=== PATIENT | male | born 1975 | race African-American/Black ===

== ENCOUNTER 2016-07-14 18:54 | Inpatient (IN) | payer MEDICAID ==
[~2016-07-14] VITALS: Ht 185.4 cm; Wt 82.1 kg
[~2016-07-14 18:54] MED LIST: ACET325T14 PO; AMOX1TAB64 PO; ASPI325T4 PO; ATOR80TA75 PO; CEPH750C7 PO; HYDR-3138 PO; HYDR-3240 PO; LISI-167 PO; METO25TA91 PO
[2016-07-14] MEDS ORDERED: MORPHINE SULFATE 4 MG/ML, 1ML ONE ×2 (19:59→21:10)
[2016-07-14] MEDS ORDERED: ONDANSETRON 2MG/ML, 2ML ONE (19:59)
[2016-07-14] MEDS ORDERED: AMPICILLIN/SULBACTAM 3 GM in SODIUM CHLORIDE 0.9% 100 ML IVPB ONE (20:00)
[2016-07-14] MEDS ORDERED: ONDANSETRON 2MG/ML, 2ML IVPush ONE (20:00)
[2016-07-14] MEDS ORDERED: VANCOMYCIN PER PHARMACY IV ONE (20:00)
[2016-07-14] MEDS ORDERED: VANCOMYCIN 1,800 MG in SODIUM CHLORIDE 0.9% 250 ML IV ONE (20:00)
[2016-07-14] MEDS ORDERED: SODIUM CHLORIDE 0.9% 1,000ML IVBOLUS ONE (20:00)
[2016-07-14] MEDS ORDERED: PHARMACOKINETIC CONSULTATION MC ONE (20:00)
[2016-07-14] MEDS ORDERED: OMNIPAQUE 350 MG/ML, 100ML BOTTLE ONE (20:00)
[2016-07-14] MEDS ORDERED: SODIUM CHLORIDE FLUSH 10ML SYR IVF ONE (20:00)
[2016-07-14] MEDS: MORPHINE SULFATE 4 MG/ML, 1ML IV PRN ×2 (20:06→21:15)
[2016-07-14 20:28] LABS: BLOOD UREA NITROGEN 8 mg/dL (7-18)
[2016-07-14] MEDS ORDERED: HYDR2TAB13 PO (20:57)
[2016-07-14] MEDS ORDERED: CLON0.1T PO (20:57)
[2016-07-14] MEDS ORDERED: LIDOCAINE 1%, 20ML ONE (21:13)
[2016-07-14] MEDS ORDERED: LIDOCAINE 1%, 20ML SQ ONE (21:30)
[2016-07-14] MEDS ORDERED: ACETAMINOPHEN 325 MG TABLET PO PRN (22:00)
[2016-07-14] MEDS ORDERED: VANCOMYCIN 0 MG in SODIUM CHLORIDE 0.9% 250 ML IV SCH (22:30)
[2016-07-14] MEDS: NICOTINE 7 MG/24 HR PATCH.TD24 TD SCH (22:30)
[2016-07-14] MEDS: ENOXAPARIN 40 MG/0.4 ML SQ SCH (22:30)
[2016-07-14] MEDS ORDERED: LABETALOL 5MG/ML, 20ML IV PRN (22:30)
[2016-07-14] MEDS ORDERED: VANCOMYCIN PER PHARMACY MC PRN (22:30)
[2016-07-14] MEDS ORDERED: ONDANSETRON ODT 4 MG PO PRN (22:30)
[2016-07-14] MEDS ORDERED: PHARMACOKINETIC MONITORING MC PRN (23:00)
[2016-07-14] MEDS: ATORVASTATIN 80 MG TABLET PO SCH (23:32)
[2016-07-14 23:40] VITALS: BP 173/103
[2016-07-15] MEDS ORDERED: MAGNESIUM SULFATE PMX 4GM/100M 100 ML IV ONE (01:00)
[2016-07-15] MEDS ORDERED: POTASSIUM CHLORIDE 20 MEQ TAB.ER.PRT PO ONE (01:00)
[2016-07-15] MEDS: AMPICILLIN/SULBACTAM 3 GM in SODIUM CHLORIDE 0.9% 100 ML IV SCH ×4 (01:52→20:21)
[2016-07-15] MEDS: MORPHINE SULFATE 4 MG/ML, 1ML IVPush PRN ×5 (01:52→20:21)
[2016-07-15 03:31] VITALS: BP 161/91
[2016-07-15 06:25] LABS: BLOOD UREA NITROGEN 6 mg/dL (7-18)
[2016-07-15 07:49] VITALS: BP 144/88
[2016-07-15] MEDS: METOPROLOL SUCCINATE 25 MG TAB.ER.24H PO SCH (08:13)
[2016-07-15] MEDS: ASPIRIN 325 MG TABLET PO SCH (08:14)
[2016-07-15] MEDS: LISINOPRIL 10 MG TABLET PO SCH ×2 (08:14→21:25)
[2016-07-15] MEDS: VANCOMYCIN 1,800 MG in SODIUM CHLORIDE 0.9% 250 ML IV SCH ×2 (09:54→21:25)
[2016-07-15 12:32] VITALS: BP 150/91
[2016-07-15 20:43] VITALS: BP 164/95
[2016-07-15] MEDS: ATORVASTATIN 80 MG TABLET PO SCH (21:25)
[2016-07-15] MEDS: ENOXAPARIN 40 MG/0.4 ML SQ SCH (22:30)
[2016-07-15] MEDS: NICOTINE 7 MG/24 HR PATCH.TD24 TD SCH (22:30)
[2016-07-16] MEDS: MORPHINE SULFATE 4 MG/ML, 1ML IVPush PRN ×6 (00:27→21:49)
[2016-07-16 01:01] VITALS: BP 162/92
[2016-07-16] MEDS: AMPICILLIN/SULBACTAM 3 GM in SODIUM CHLORIDE 0.9% 100 ML IV SCH ×4 (01:58→21:11)
[2016-07-16 07:49] VITALS: BP 171/94
[2016-07-16] MEDS: LISINOPRIL 10 MG TABLET PO SCH ×2 (08:08→21:11)
[2016-07-16] MEDS: ASPIRIN 325 MG TABLET PO SCH (08:08)
[2016-07-16] MEDS: METOPROLOL SUCCINATE 25 MG TAB.ER.24H PO SCH (08:09)
[2016-07-16 09:02] LABS: BLOOD UREA NITROGEN 5 mg/dL (7-18)
[2016-07-16] MEDS: VANCOMYCIN 1,800 MG in SODIUM CHLORIDE 0.9% 250 ML IV SCH (10:03)
[2016-07-16] MEDS: AMLODIPINE 5 MG TABLET PO SCH (12:36)
[2016-07-16 14:26] VITALS: BP 157/102
[2016-07-16 20:26] VITALS: BP 161/61
[2016-07-16] MEDS: ATORVASTATIN 80 MG TABLET PO SCH (21:11)
[2016-07-16] MEDS: VANCOMYCIN 1,600 MG in SODIUM CHLORIDE 0.9% 250 ML IV SCH (21:49)
[2016-07-16] MEDS: NICOTINE 7 MG/24 HR PATCH.TD24 TD SCH (22:30)
[2016-07-16] MEDS: ENOXAPARIN 40 MG/0.4 ML SQ SCH (22:30)
[2016-07-17 01:50] VITALS: BP 179/88
[2016-07-17] MEDS: TEMAZEPAM 15 MG CAPSULE PO PRN (02:02)
[2016-07-17] MEDS: AMPICILLIN/SULBACTAM 3 GM in SODIUM CHLORIDE 0.9% 100 ML IV SCH ×4 (02:02→20:11)
[2016-07-17] MEDS: MORPHINE SULFATE 4 MG/ML, 1ML IVPush PRN ×4 (04:40→20:10)
[2016-07-17 07:41] VITALS: BP 166/91
[2016-07-17] MEDS: ASPIRIN 325 MG TABLET PO SCH (07:45)
[2016-07-17] MEDS: AMLODIPINE 5 MG TABLET PO SCH (07:46)
[2016-07-17] MEDS: LISINOPRIL 10 MG TABLET PO SCH (07:46)
[2016-07-17] MEDS: LISINOPRIL 20 MG TABLET PO SCH (08:58)
[2016-07-17] MEDS: VANCOMYCIN 1,600 MG in SODIUM CHLORIDE 0.9% 250 ML IV SCH ×2 (09:41→21:04)
[2016-07-17 13:50] VITALS: BP 124/82
[2016-07-17] MEDS ORDERED: POLYETHYLENE GLYCOL 17 GM PACKET PO PRN (16:00)
[2016-07-17] MEDS: SENNOSIDES 8.6 MG TABLET PO SCH (17:02)
[2016-07-17 19:33] VITALS: BP 156/92
[2016-07-17] MEDS: ATORVASTATIN 80 MG TABLET PO SCH (20:11)
[2016-07-17] MEDS ORDERED: OMNIPAQUE 350 MG/ML, 100ML BOTTLE ONE (22:27)
[2016-07-17] MEDS: NICOTINE 7 MG/24 HR PATCH.TD24 TD SCH (22:30)
[2016-07-17] MEDS: ENOXAPARIN 40 MG/0.4 ML SQ SCH (22:30)
[2016-07-18] MEDS: MORPHINE SULFATE 4 MG/ML, 1ML IVPush PRN ×6 (00:09→23:03)
[2016-07-18] MEDS: TEMAZEPAM 15 MG CAPSULE PO PRN (00:09)
[2016-07-18 01:54] VITALS: BP 150/87
[2016-07-18] MEDS: AMPICILLIN/SULBACTAM 3 GM in SODIUM CHLORIDE 0.9% 100 ML IV SCH ×4 (02:23→20:28)
[2016-07-18 06:46] VITALS: BP 158/100
[2016-07-18] MEDS: AMLODIPINE 5 MG TABLET PO SCH (08:11)
[2016-07-18] MEDS: ASPIRIN 325 MG TABLET PO SCH (08:11)
[2016-07-18] MEDS: SENNOSIDES 8.6 MG TABLET PO SCH (08:11)
[2016-07-18] MEDS: LISINOPRIL 20 MG TABLET PO SCH (08:11)
[2016-07-18] MEDS: OXYcodone/APAP 5/325MG TABLET PO PRN ×3 (09:35→22:24)
[2016-07-18] MEDS: VANCOMYCIN 1,600 MG in SODIUM CHLORIDE 0.9% 250 ML IV SCH ×2 (10:44→22:24)
[2016-07-18 13:26] VITALS: BP 143/95
[2016-07-18 20:14] VITALS: BP 178/102
[2016-07-18] MEDS: ATORVASTATIN 80 MG TABLET PO SCH (20:28)
[2016-07-18] MEDS: ENOXAPARIN 40 MG/0.4 ML SQ SCH (22:30)
[2016-07-18] MEDS: NICOTINE 7 MG/24 HR PATCH.TD24 TD SCH (22:30)
[2016-07-19 01:36] VITALS: BP 159/95
[2016-07-19] MEDS: AMPICILLIN/SULBACTAM 3 GM in SODIUM CHLORIDE 0.9% 100 ML IV SCH ×2 (03:08→08:37)
[2016-07-19] MEDS: MORPHINE SULFATE 4 MG/ML, 1ML IVPush PRN ×2 (03:08→08:13)
[2016-07-19] MEDS: OXYcodone/APAP 5/325MG TABLET PO PRN (04:23)
[2016-07-19 08:03] VITALS: BP 156/99
[2016-07-19] MEDS: AMLODIPINE 5 MG TABLET PO SCH (08:38)
[2016-07-19] MEDS: ASPIRIN 325 MG TABLET PO SCH (08:38)
[2016-07-19] MEDS: LISINOPRIL 20 MG TABLET PO SCH (08:39)
[2016-07-19] MEDS: SENNOSIDES 8.6 MG TABLET PO SCH (08:39)
[2016-07-19] MEDS ORDERED: SULF1TAB24 PO (09:46)
[2016-07-19] MEDS ORDERED: HYDR-3341 PO (09:46)
[2016-07-19] MEDS ORDERED: AMLO10TA2 PO (09:46)
[2016-07-19] MEDS ORDERED: ASPI325T4 PO (09:46)
[2016-07-19] MEDS ORDERED: LISI40TA PO (09:49)
== END 2016-07-19 11:45 | disposition home or self-care (01) | DRG 603 ==
LOC: ED 19:55 → 3NE 21:11
PROVIDERS: ADMIT Internal Medicine; ATTEND Internal Medicine
PROC: 0W923ZZ Drainage of Face, Percutaneous Approach (ICD-10-PCS; principal; 2016-07-14)
DX: L03.213 Periorbital cellulitis (principal); L02.01 Cutaneous abscess of face; L03.211 Cellulitis of face; I16.0 Hypertensive urgency; E87.6 Hypokalemia; F10.20 Alcohol dependence, uncomplicated; F17.210 Nicotine dependence, cigarettes, uncomplicated; G89.11 Acute pain due to trauma; Z71.6 Tobacco abuse counseling; Z86.14 Personal history of Methicillin resistant Staphylococcus aureus infection; Z86.74 Personal history of sudden cardiac arrest; Z87.01 Personal history of pneumonia (recurrent); Y93.67 Activity, basketball; Y92.89 Other specified places as the place of occurrence of the external cause; Y99.8 Other external cause status; Z22.322 Carrier or suspected carrier of Methicillin resistant Staphylococcus aureus; Z79.82 Long term (current) use of aspirin; Z79.899 Other long term (current) drug therapy; Z83.3 Family history of diabetes mellitus; Z82.3 Family history of stroke; Z82.49 Family history of ischemic heart disease and other diseases of the circulatory system
CPT/HCPCS: 36415; 70487; 74160; 80048; 80202; 82040; 83605; 83735; 84145; 85025; 87040; 87081; 96365; 96367; 96375; J0295; J2405; J3370; Q9967; J3475; J7030; J7050

== ENCOUNTER 2016-08-01 23:38 | Emergency (ER) | payer MEDICAID ==
[~2016-08-01] VITALS: Ht 188 cm; Wt 78.8 kg
[~2016-08-01 23:38] MED LIST changes: +AMLO10TA2 PO; +CLON0.1T PO; +HYDR-3341 PO; +HYDR2TAB13 PO; +LISI40TA PO; +SULF1TAB24 PO
[2016-08-01 23:44] VITALS: BP 133/81
[2016-08-02] MEDS ORDERED: LIDOCAINE 1%, 20ML INFIL ONE (00:30)
[2016-08-02 00:47] LABS: ASPARTATE AMINO TRANSFERASE 15 U/L (15-37); BLOOD UREA NITROGEN 25 mg/dL (7-18)
[2016-08-02] MEDS ORDERED: LIDOCAINE 1%, 20ML ONE (01:14)
[2016-08-02] MEDS ORDERED: L.E.T SOLUTION TP ONE ×2 (01:30→01:33)
[2016-08-02] MEDS ORDERED: DIPH,PERTUSS(ACELL),TET VAC/PF 0.5 ML IM-VACC ONE ×2 (02:23→02:30)
== END 2016-08-02 02:34 | disposition home or self-care (01) ==
LOC: ED 08-02 02:28
DX: I10 Essential (primary) hypertension (principal); F17.200 Nicotine dependence, unspecified, uncomplicated; S91.111A Laceration without foreign body of right great toe without damage to nail, initial encounter; W26.0XXA Contact with knife, initial encounter; Y93.89 Activity, other specified; Y92.89 Other specified places as the place of occurrence of the external cause; Y99.8 Other external cause status
CPT/HCPCS: 12002; 36415; 80053; 85025

== ENCOUNTER 2016-10-19 08:24 | Emergency (ER) | payer MEDICAID ==
[~2016-10-19] VITALS: Ht 182.9 cm; Wt 86.5 kg
[~2016-10-19 08:24] MED LIST changes: -HYDR2TAB13 PO; +HYDR2TAB29 PO
[2016-10-19] MEDS ORDERED: SODIUM CHLORIDE 0.9% 1,000 ML IV ONE (08:50)
[2016-10-19] MEDS ORDERED: PLEASE ENTER ALLERGIES MC SCH ×2 (09:00)
[2016-10-19] MEDS ORDERED: SODIUM CHLORIDE 0.9% 1,000ML IVBOLUS ONE (09:00)
[2016-10-19] MEDS ORDERED: PLEASE ENTER HEIGHT AND WEIGHT MC SCH (09:00)
[2016-10-19 09:18] LABS: HEMATOCRIT 33.9 % (39.2-51.8); HEMOGLOBIN 11.3 g/dL (13.7-18.0); WHITE BLOOD COUNT 6.4 x10^3/uL (3.4-10)
[2016-10-19 09:30] LABS: BLOOD UREA NITROGEN 10 mg/dL (7-18)
[2016-10-19 09:32] LABS: ACETAMINOPHEN < 2 mcg/mL (10-30)
[2016-10-19 15:49] LABS: DAU SCREEN DISCLAIMER
[2016-10-19 20:13] VITALS: BP 108/73
== END 2016-10-19 20:14 | disposition home or self-care (01) ==
LOC: MERGE 08:24 → EDBD 08:24 → ED 17:17
DX: G31.2 Degeneration of nervous system due to alcohol (principal); E87.0 Hyperosmolality and hypernatremia; F10.120 Alcohol abuse with intoxication, uncomplicated
CPT/HCPCS: 36415; 80048; 80307; 80329; 82040; 85025; 93005; 99285; G0480

== ENCOUNTER 2017-02-24 08:33 | Emergency (ER) | payer MEDICAID ==
[~2017-02-24] VITALS: Ht 188 cm; Wt 100.0 kg
[~2017-02-24 08:33] MED LIST changes: +ASPI325T17 PO; -ASPI325T4 PO; +ATOR-2 PO; -ATOR80TA75 PO; -HYDR-3138 PO; +HYDR-3237 PO
[2017-02-24 08:41] VITALS: BP 142/105
[2017-02-24 09:46] LABS: HEMATOCRIT 45.6 % (39.2-51.8); HEMOGLOBIN 15.5 g/dL (13.7-18.0); WHITE BLOOD COUNT 7.4 x10^3/uL (3.4-10)
[2017-02-24 09:54] LABS: BLOOD UREA NITROGEN 12 mg/dL (7-18)
[2017-02-24] MEDS ORDERED: CEFTRIAXONE 1,000 MG IM ONE (11:30)
[2017-02-24] MEDS ORDERED: CEFTRIAXONE 1,000 MG ONE (11:57)
== END 2017-02-24 12:08 | disposition home or self-care (01) ==
LOC: ED 10:22
DX: F10.129 Alcohol abuse with intoxication, unspecified (principal); F12.10 Cannabis abuse, uncomplicated; I10 Essential (primary) hypertension; J15.9 Unspecified bacterial pneumonia; Y92.481 Parking lot as the place of occurrence of the external cause
CPT/HCPCS: 36415; 71010; 80048; 82040; 83605; 85025; 93005; 96372; 99285; J0696

== ENCOUNTER 2017-03-08 08:53 | Emergency (ER) | payer MEDICAID ==
[~2017-03-08] VITALS: Ht 185.4 cm; Wt 90.9 kg
[2017-03-08] MEDS ORDERED: KETOROLAC 30 MG/1 ML IVPush ONE (09:30)
[2017-03-08] MEDS ORDERED: DEXAMETHASONE 4 MG/ML, 1ML IVPush ONE (09:30)
[2017-03-08] MEDS ORDERED: DEXAMETHASONE 4 MG/ML, 1ML ONE ×2 (09:40→09:53)
[2017-03-08] MEDS ORDERED: KETOROLAC 30 MG/1 ML ONE (09:40)
[2017-03-08] MEDS ORDERED: ALBUTEROL SULFATE 2.5 MG/3 ML ONE (10:11)
[2017-03-08 10:45] LABS: MICROSCOPIC INDICATED
[2017-03-08 10:56] LABS: CULTURE INDICATED? NO
[2017-03-08 11:23] VITALS: BP 134/74
== END 2017-03-08 11:41 | disposition home or self-care (01) ==
LOC: ED 10:11
DX: J11.1 Influenza due to unidentified influenza virus with other respiratory manifestations (principal); J20.8 Acute bronchitis due to other specified organisms; I10 Essential (primary) hypertension; F17.210 Nicotine dependence, cigarettes, uncomplicated; E78.5 Hyperlipidemia, unspecified; J44.0 Chronic obstructive pulmonary disease with (acute) lower respiratory infection; Z79.82 Long term (current) use of aspirin
CPT/HCPCS: 71010; 81001; 93005; 94640; 96374; 96375; 99285; J1100; J1885

== ENCOUNTER 2017-03-21 01:14 | Emergency (ER) | payer MEDICAID ==
[~2017-03-21] VITALS: Ht 188 cm; Wt 89.9 kg
[2017-03-21 01:16] VITALS: BP 140/100
[2017-03-21 03:04] LABS: BASOPHILS # (AUTO) 0.04 x10^3/uL (0-0.1); BASOPHILS % (AUTO) 1 % (0-1); EOSINOPHILS # (AUTO) 0.08 x10^3/uL (0-0.4); EOSINOPHILS % (AUTO) 2 % (1-7); LYMPHOCYTES % (AUTO) 53 % (22-44); MD NO; MEAN CORPUSCULAR HEMOGLOBIN 31.3 pg (27.5-34.5); MEAN CORPUSCULAR HGB CONC 33.8 g/dL (33.2-36.2); MEAN CORPUSCULAR VOLUME 92.7 fL (81-97); MEAN PLATELET VOLUME 6.3 fL (7.4-10.4); MONOCYTES # (AUTO) 0.27 x10^3/uL (0.2-0.8); MONOCYTES % (AUTO) 6 % (2-9); NEUTROPHILS # (AUTO) 1.95 x10^3/uL (1.8-6.8); NEUTROPHILS % (AUTO) 40 % (42-75); PLATELET COUNT 312 x10^3/uL (130-400)
[2017-03-21 03:14] LABS: ALANINE AMINOTRANSFERASE 62 U/L (12-78); ANION GAP 11 mmol/L (5-15); CALCIUM 8.4 mg/dL (8.5-10.1); CHLORIDE 106 mmol/L (98-107)
[2017-03-21 03:17] LABS: ALKALINE PHOSPHATASE 91 U/L (45-117); BILIRUBIN,TOTAL 0.3 mg/dL (0.2-1.0); TROPONIN I < 0.015 ng/mL (0.000-0.045)
== END 2017-03-21 04:05 | disposition home or self-care (01) ==
LOC: ED 03:59
DX: R07.2 Precordial pain (principal); K21.0 Gastro-esophageal reflux disease with esophagitis; J44.9 Chronic obstructive pulmonary disease, unspecified; F10.220 Alcohol dependence with intoxication, uncomplicated; I10 Essential (primary) hypertension; Z79.899 Other long term (current) drug therapy
CPT/HCPCS: 36415; 71045; 80053; 80307; 84484; 85025; 93005; 99285

== ENCOUNTER 2017-05-08 11:09 | Inpatient (IN) | payer MEDICAID ==
[~2017-05-08] VITALS: Ht 185.4 cm; Wt 81.6 kg
[2017-05-08] MEDS ORDERED: SODIUM CHLORIDE 0.9% 1,000 ML IV ONE ×2 (12:08→14:04)
[2017-05-08] MEDS ORDERED: MORPHINE SULFATE 4 MG/ML, 1ML ONE ×2 (12:22→14:33)
[2017-05-08] MEDS ORDERED: SODIUM CHLORIDE FLUSH 10ML SYR IVF ONE (12:30)
[2017-05-08] MEDS ORDERED: SODIUM CHLORIDE 0.9% 1,000ML IVBOLUS ONE ×2 (12:30→14:00)
[2017-05-08] MEDS: MORPHINE SULFATE 4 MG/ML, 1ML IVPush PRN ×2 (12:36→14:47)
[2017-05-08] MEDS ORDERED: ONDANSETRON 2MG/ML, 2ML ONE (12:47)
[2017-05-08 12:54] LABS: BASOPHILS # (AUTO) 0.02 x10^3/uL (0-0.1); BASOPHILS % (AUTO) 0 % (0-1); EOSINOPHILS # (AUTO) 0.03 x10^3/uL (0-0.4); EOSINOPHILS % (AUTO) 1 % (1-7); LYMPHOCYTES # (AUTO) 0.86 x10^3/uL (1-3.4); LYMPHOCYTES % (AUTO) 18 % (22-44); MD NO; MEAN CORPUSCULAR HEMOGLOBIN 32.5 pg (27.5-34.5); MEAN CORPUSCULAR HGB CONC 34.1 g/dL (33.2-36.2); MEAN CORPUSCULAR VOLUME 95.2 fL (81-97); MEAN PLATELET VOLUME 7.1 fL (7.4-10.4); MONOCYTES # (AUTO) 0.27 x10^3/uL (0.2-0.8); MONOCYTES % (AUTO) 6 % (2-9); NEUTROPHILS % (AUTO) 75 % (42-75); PLATELET COUNT 265 x10^3/uL (130-400); RED BLOOD COUNT 4.42 x10^6/uL (4.38-5.82); RED CELL DISTRIBUTION WIDTH 18.2 % (9.4-14.8)
[2017-05-08 13:05] LABS: ALBUMIN 4.2 g/dL (3.4-5.0); ANION GAP 17 mmol/L (5-15); CALCIUM 8.7 mg/dL (8.5-10.1); CHLORIDE 99 mmol/L (98-107)
[2017-05-08 13:08] LABS: INTERNATIONAL NORMALIZED RATIO 1.01 (0.93-1.1); PROTHROMBIN TIME 10.4 Seconds (9.6-11.5)
[2017-05-08 13:12] LABS: ALANINE AMINOTRANSFERASE 108 U/L (12-78); ALKALINE PHOSPHATASE 106 U/L (45-117); BILIRUBIN,TOTAL 0.8 mg/dL (0.2-1.0); CREATININE 0.88 mg/dL (0.7-1.3); TOTAL PROTEIN 8.6 g/dL (6.4-8.2); TROPONIN I < 0.015 ng/mL (0.000-0.045)
[2017-05-08] MEDS ORDERED: SODIUM CHLORIDE FLUSH 10ML SYR IVF PRN (14:30)
[2017-05-08] MEDS ORDERED: MORP-52 PO (14:46)
[2017-05-08] MEDS ORDERED: [UNRECOGNIZED DRUG - CODE] PO (14:46)
[2017-05-08] MEDS ORDERED: ALBU0.63 NEB (14:47)
[2017-05-08] MEDS ORDERED: LORazepam 2 MG/ML, 1ML IVPush ONE (15:30)
[2017-05-08] MEDS ORDERED: hydrALAzine 20 MG/ML, 1ML IV ONE (15:30)
[2017-05-08] MEDS ORDERED: hydrALAzine 20 MG/ML, 1ML ONE ×2 (15:31→15:36)
[2017-05-08] MEDS ORDERED: LORazepam 2 MG/ML, 1ML ONE (15:32)
[2017-05-08] MEDS ORDERED: LISINOPRIL 20 MG TABLET PO ONE (16:00)
[2017-05-08] MEDS ORDERED: AMLODIPINE 5 MG TABLET PO ONE (16:00)
[2017-05-08 16:12] LABS: CULTURE INDICATED? YES; MICROSCOPIC INDICATED
[2017-05-08 16:24] LABS: AMPHETAMINE SCREEN, URINE Negative (Negative); BARBITURATE SCREEN, URINE Negative (Negative); BENZODIAZEPINE SCREEN, URINE Positive (Negative); CANNABINOID SCREEN, URINE Positive (Negative); COCAINE SCREEN, URINE Negative (Negative); METHADONE SCREEN, URINE Negative (Negative); OPIATE SCREEN, URINE Positive (Negative)
[2017-05-08 16:40] VITALS: BP 182/106
[2017-05-08] MEDS ORDERED: hydrALAzine 20 MG/ML, 1ML IV PRN (17:30)
[2017-05-08] MEDS ORDERED: LORazepam 2 MG/ML, 1ML IV PRN ×4 (18:00)
[2017-05-08] MEDS ORDERED: POTASSIUM CHLORIDE 20 MEQ TAB.ER.PRT PO ONE (18:00)
[2017-05-08] MEDS ORDERED: LORazepam 1MG TABLET PO PRN (18:00)
[2017-05-08 18:58] VITALS: BP 103/57
[2017-05-08 19:05] VITALS: BP 158/94
[2017-05-08] MEDS ORDERED: ATORVASTATIN 80 MG TABLET PO SCH (21:00)
[2017-05-08 22:45] VITALS: BP 153/105
[2017-05-08] MEDS: PANTOPRAZOLE 40 MG IV IVPush SCH (22:52)
[2017-05-08] MEDS: ENOXAPARIN 40 MG/0.4 ML SQ SCH (22:57)
[2017-05-08] MEDS ORDERED: OMNIPAQUE 350 MG/ML, 100ML BOTTLE ONE (23:15)
[2017-05-08] MEDS: morphine SULFATE 10 MG/ML, 1ML IVPush PRN (23:22)
[2017-05-08] MEDS: ONDANSETRON 2MG/ML, 2ML IVPush PRN (23:22)
[2017-05-09 01:46] VITALS: BP 165/102
[2017-05-09] MEDS ORDERED: ASPIRIN 81 MG TABLET EC PO SCH (06:00)
[2017-05-09 06:23] LABS: BASOPHILS # (AUTO) 0.01 x10^3/uL (0-0.1); BASOPHILS % (AUTO) 0 % (0-1); EOSINOPHILS # (AUTO) 0.06 x10^3/uL (0-0.4); EOSINOPHILS % (AUTO) 1 % (1-7); LYMPHOCYTES # (AUTO) 1.09 x10^3/uL (1-3.4); LYMPHOCYTES % (AUTO) 21 % (22-44); MD NO; MEAN CORPUSCULAR HEMOGLOBIN 32.4 pg (27.5-34.5); MEAN CORPUSCULAR HGB CONC 33.8 g/dL (33.2-36.2); MEAN CORPUSCULAR VOLUME 95.6 fL (81-97); MEAN PLATELET VOLUME 7.2 fL (7.4-10.4); MONOCYTES % (AUTO) 6 % (2-9); NEUTROPHILS # (AUTO) 3.66 x10^3/uL (1.8-6.8); NEUTROPHILS % (AUTO) 72 % (42-75); PLATELET COUNT 237 x10^3/uL (130-400); RED BLOOD COUNT 4.65 x10^6/uL (4.38-5.82); RED CELL DISTRIBUTION WIDTH 18.3 % (9.4-14.8)
[2017-05-09 06:34] LABS: ALANINE AMINOTRANSFERASE 91 U/L (12-78); ALBUMIN 3.7 g/dL (3.4-5.0); ANION GAP 14 mmol/L (5-15); CALCIUM 8.6 mg/dL (8.5-10.1); CHLORIDE 97 mmol/L (98-107); CHOLESTEROL, TOTAL 258 mg/dL (140-239); CREATININE 0.86 mg/dL (0.7-1.3)
[2017-05-09 06:43] LABS: ALKALINE PHOSPHATASE 105 U/L (45-117); BILIRUBIN,TOTAL 0.9 mg/dL (0.2-1.0); CHOL/HDL RATIO 2.1; HDL CHOL % 47 % (26-37); HDL CHOLESTEROL (DIRECT) 122 mg/dL (40-60); LDL CHOLESTEROL,CALCULATED 114 mg/dL (54-169); LDL/HDL RATIO 0.9 (0.5-3.0); TOTAL PROTEIN 8.1 g/dL (6.4-8.2); TRIGLYCERIDES 108 mg/dL (50-200); VLDL CHOLESTEROL 22 mg/dL (0-25)
[2017-05-09] MEDS: ONDANSETRON 2MG/ML, 2ML IVPush PRN ×2 (06:46→17:28)
[2017-05-09] MEDS: morphine SULFATE 10 MG/ML, 1ML IVPush PRN ×4 (06:46→17:27)
[2017-05-09 08:10] VITALS: BP 142/96
[2017-05-09] MEDS: SODIUM CHLORIDE 0.9% 1,000 ML IV SCH ×3 (09:00→22:20)
[2017-05-09] MEDS ORDERED: AMLODIPINE 5 MG TABLET PO SCH (09:00)
[2017-05-09] MEDS: THIAMINE 100MG TABLET PO SCH (09:21)
[2017-05-09] MEDS: PANTOPRAZOLE 40 MG IV IVPush SCH ×2 (09:21→21:04)
[2017-05-09] MEDS: LISINOPRIL 20 MG TABLET PO SCH (09:22)
[2017-05-09] MEDS: MULTIVITAMIN 1 TABLET PO SCH (09:22)
[2017-05-09] MEDS: FOLIC ACID 1 MG TABLET PO SCH (09:23)
[2017-05-09] MEDS: LORazepam 1MG TABLET PO PRN ×4 (11:38→21:11)
[2017-05-09] MEDS: ONDANSETRON ODT 4 MG PO PRN (11:38)
[2017-05-09 14:40] VITALS: BP 152/103
[2017-05-09] MEDS ORDERED: POTASSIUM PHOSPHATE 44 MEQ in SODIUM CHLORIDE 0.9% 500 ML IV ONE (17:00)
[2017-05-09] MEDS ORDERED: POTASSIUM CHLORIDE 20 MEQ TAB.ER.PRT PO ONE (17:00)
[2017-05-09] MEDS: METOPROLOL TARTRATE 50 MG TABLET PO SCH (18:05)
[2017-05-09] MEDS: POTASSIUM PHOSPHATE 44 MEQ in SODIUM CHLORIDE 0.9% 500 ML IV SCH (18:26)
[2017-05-09] MEDS ORDERED: MAGNESIUM SULFATE PMX 2GM/50ML 50 ML IV ONE (19:00)
[2017-05-09 19:21] VITALS: BP 152/105
[2017-05-09] MEDS: ENOXAPARIN 40 MG/0.4 ML SQ SCH (21:05)
[2017-05-10] MEDS: LORazepam 1MG TABLET PO PRN ×3 (00:21→10:14)
[2017-05-10 01:04] VITALS: BP 142/104
[2017-05-10] MEDS: POTASSIUM PHOSPHATE 44 MEQ in SODIUM CHLORIDE 0.9% 500 ML IV SCH (01:34)
[2017-05-10] MEDS: morphine SULFATE 10 MG/ML, 1ML IVPush PRN ×5 (01:34→22:43)
[2017-05-10 05:35] LABS: CHLORIDE 96 mmol/L (98-107)
[2017-05-10 05:49] LABS: ALANINE AMINOTRANSFERASE 82 U/L (12-78); ALBUMIN 3.2 g/dL (3.4-5.0); ALKALINE PHOSPHATASE 102 U/L (45-117); ANION GAP 13 mmol/L (5-15); BILIRUBIN,TOTAL 0.9 mg/dL (0.2-1.0); CALCIUM 8.2 mg/dL (8.5-10.1); CREATININE 0.88 mg/dL (0.7-1.3); TOTAL PROTEIN 7.6 g/dL (6.4-8.2)
[2017-05-10] MEDS: METOPROLOL TARTRATE 50 MG TABLET PO SCH ×2 (05:59→17:36)
[2017-05-10] MEDS: ONDANSETRON ODT 4 MG PO PRN (06:24)
[2017-05-10 07:07] VITALS: BP 153/103
[2017-05-10] MEDS: PANTOPRAZOLE 40 MG IV IVPush SCH ×2 (08:21→21:07)
[2017-05-10] MEDS: FOLIC ACID 1 MG TABLET PO SCH (08:21)
[2017-05-10] MEDS: MULTIVITAMIN 1 TABLET PO SCH (08:21)
[2017-05-10] MEDS: THIAMINE 100MG TABLET PO SCH (08:21)
[2017-05-10] MEDS: LISINOPRIL 20 MG TABLET PO SCH (08:22)
[2017-05-10] MEDS: ACETAMINOPHEN 325 MG TABLET PO PRN ×2 (08:31→17:36)
[2017-05-10] MEDS: SODIUM CHLORIDE 0.9% 1,000 ML IV SCH ×2 (09:38→17:46)
[2017-05-10] MEDS ORDERED: POTASSIUM CHLORIDE 20 MEQ TAB.ER.PRT PO ONE (10:00)
[2017-05-10] MEDS ORDERED: CEFTRIAXONE PMX 2GM/50ML 50 ML IV SCH (10:00)
[2017-05-10] MEDS: MAGNESIUM OXIDE 400 MG TABLET PO SCH ×2 (10:14→21:06)
[2017-05-10] MEDS: POLYETHYLENE GLYCOL 17 GM PACKET PO SCH (10:14)
[2017-05-10] MEDS ORDERED: BISACODYL 10 MG SUPP PR PRN (11:00)
[2017-05-10] MEDS ORDERED: LACTULOSE 20 GM/30 ML UDC PO PRN (11:00)
[2017-05-10] MEDS ORDERED: OXYcodone IR 5MG TABLET ONE (11:04)
[2017-05-10] MEDS: BACLOFEN 10 MG TABLET PO SCH ×3 (11:08→21:06)
[2017-05-10] MEDS: OXYcodone IR 5MG TABLET PO PRN (11:09)
[2017-05-10 13:34] VITALS: BP 137/96
[2017-05-10] MEDS: ONDANSETRON 2MG/ML, 2ML IVPush PRN (17:44)
[2017-05-10] MEDS: LORazepam 0.5MG TABLET PO PRN ×2 (17:44→22:42)
[2017-05-10 20:35] VITALS: BP 153/99
[2017-05-10] MEDS: ENOXAPARIN 40 MG/0.4 ML SQ SCH (21:07)
[2017-05-11 02:00] VITALS: BP 126/78
[2017-05-11] MEDS: morphine SULFATE 10 MG/ML, 1ML IVPush PRN ×4 (02:14→22:24)
[2017-05-11] MEDS: SODIUM CHLORIDE 0.9% 1,000 ML IV SCH ×2 (02:16→09:40)
[2017-05-11] MEDS: LORazepam 0.5MG TABLET PO PRN ×2 (05:02→09:36)
[2017-05-11 05:24] LABS: MEAN CORPUSCULAR HEMOGLOBIN 32.5 pg (27.5-34.5); MEAN CORPUSCULAR HGB CONC 33.7 g/dL (33.2-36.2); MEAN CORPUSCULAR VOLUME 96.4 fL (81-97); MEAN PLATELET VOLUME 7.8 fL (7.4-10.4); PLATELET COUNT 144 x10^3/uL (130-400); RED BLOOD COUNT 4.37 x10^6/uL (4.38-5.82); RED CELL DISTRIBUTION WIDTH 17.3 % (9.4-14.8)
[2017-05-11 05:26] LABS: CHLORIDE 100 mmol/L (98-107)
[2017-05-11 05:38] LABS: ALANINE AMINOTRANSFERASE 163 U/L (12-78); ALBUMIN 2.6 g/dL (3.4-5.0); ALKALINE PHOSPHATASE 96 U/L (45-117); ANION GAP 10 mmol/L (5-15); BILIRUBIN,TOTAL 0.9 mg/dL (0.2-1.0); CALCIUM 8.4 mg/dL (8.5-10.1); CREATININE 0.81 mg/dL (0.7-1.3)
[2017-05-11 06:12] LABS: MD YES
[2017-05-11 06:14] LABS: BAND#(MANUAL) 0.75 x10^3/uL; BANDS%(MANUAL) 11 % (0-7); MONOS#(MANUAL) 0.27 x10^3/uL (0.3-2.7); MONOS% (MANUAL) 4 % (2-9)
[2017-05-11 06:15] LABS: ANISOCYTOSIS 1+; LYMPH#(MANUAL) 1.22 x10^3/uL (1-3.4); LYMPHS% (MANUAL) 18 % (22-44); SEG#(MANUAL) 4.56 x10^3/uL (1.8-6.8); SEGS% (MANUAL) 67 % (42-75)
[2017-05-11 06:18] LABS: <PLATELET ESTIMATE> ADEQUATE; <PLT MORPHOLOGY> NORMAL PLT MORPH
[2017-05-11] MEDS: METOPROLOL TARTRATE 50 MG TABLET PO SCH ×2 (06:20→17:27)
[2017-05-11 08:05] VITALS: BP 119/93
[2017-05-11] MEDS: SENNA/DOCUSATE TABLET PO SCH (09:00)
[2017-05-11] MEDS: POLYETHYLENE GLYCOL 17 GM PACKET PO SCH (09:00)
[2017-05-11] MEDS: MULTIVITAMIN 1 TABLET PO SCH (09:35)
[2017-05-11] MEDS: FOLIC ACID 1 MG TABLET PO SCH (09:35)
[2017-05-11] MEDS: BACLOFEN 10 MG TABLET PO SCH ×3 (09:35→20:29)
[2017-05-11] MEDS: OXYcodone IR 5MG TABLET PO PRN ×3 (09:35→20:28)
[2017-05-11] MEDS: THIAMINE 100MG TABLET PO SCH (09:35)
[2017-05-11] MEDS: PANTOPRAZOLE 40 MG IV IVPush SCH ×2 (09:35→20:30)
[2017-05-11] MEDS: MAGNESIUM OXIDE 400 MG TABLET PO SCH ×2 (09:36→20:29)
[2017-05-11] MEDS: LISINOPRIL 20 MG TABLET PO SCH (09:36)
[2017-05-11] MEDS: CEFTRIAXONE 2 GM in SODIUM CHLORIDE 0.9% 50 ML IV SCH (11:01)
[2017-05-11] MEDS ORDERED: POTASSIUM CHLORIDE 20 MEQ TAB.ER.PRT PO ONE (13:30)
[2017-05-11 13:33] VITALS: BP 138/96
[2017-05-11] MEDS: POTASSIUM PHOSPHATE 44 MEQ in SODIUM CHLORIDE 0.9% 500 ML IV SCH ×2 (14:39→22:25)
[2017-05-11] MEDS: ONDANSETRON 2MG/ML, 2ML IVPush PRN (14:39)
[2017-05-11 20:00] VITALS: BP 121/83
[2017-05-11] MEDS: ENOXAPARIN 40 MG/0.4 ML SQ SCH (20:30)
[2017-05-12] VITALS (12 sets, daily range): BP systolic 125–158; BP diastolic 90–111
[2017-05-12] MEDS: morphine SULFATE 10 MG/ML, 1ML IVPush PRN ×4 (03:08→20:48)
[2017-05-12 05:44] LABS: ALBUMIN 2.8 g/dL (3.4-5.0); ANION GAP 12 mmol/L (5-15); CALCIUM 8.8 mg/dL (8.5-10.1); CHLORIDE 102 mmol/L (98-107)
[2017-05-12 05:47] LABS: CREATININE 0.71 mg/dL (0.7-1.3)
[2017-05-12 05:48] LABS: ALANINE AMINOTRANSFERASE 137 U/L (12-78); ALKALINE PHOSPHATASE 112 U/L (45-117); BILIRUBIN,TOTAL 0.7 mg/dL (0.2-1.0); TOTAL PROTEIN 7.4 g/dL (6.4-8.2)
[2017-05-12] MEDS: OXYcodone IR 5MG TABLET PO PRN ×2 (05:59→13:15)
[2017-05-12] MEDS: METOPROLOL TARTRATE 50 MG TABLET PO SCH ×2 (06:00→17:23)
[2017-05-12] MEDS: SODIUM CHLORIDE 0.9% 1,000 ML IV SCH (08:52)
[2017-05-12] MEDS: CEFTRIAXONE 2 GM in SODIUM CHLORIDE 0.9% 50 ML IV SCH (08:52)
[2017-05-12] MEDS: LISINOPRIL 20 MG TABLET PO SCH ×2 (08:53→20:51)
[2017-05-12] MEDS: PANTOPRAZOLE 40 MG IV IVPush SCH ×2 (08:53→20:48)
[2017-05-12] MEDS: BACLOFEN 10 MG TABLET PO SCH ×3 (08:53→20:51)
[2017-05-12] MEDS: MAGNESIUM OXIDE 400 MG TABLET PO SCH ×2 (08:53→20:52)
[2017-05-12] MEDS: MULTIVITAMIN 1 TABLET PO SCH (08:53)
[2017-05-12] MEDS: POLYETHYLENE GLYCOL 17 GM PACKET PO SCH (08:54)
[2017-05-12] MEDS: THIAMINE 100MG TABLET PO SCH (08:54)
[2017-05-12] MEDS: SENNA/DOCUSATE TABLET PO SCH (08:54)
[2017-05-12] MEDS: FOLIC ACID 1 MG TABLET PO SCH (08:54)
[2017-05-12] MEDS: DILTIAZEM 60 MG TABLET PO SCH ×3 (11:16→20:49)
[2017-05-12] MEDS: ONDANSETRON ODT 4 MG PO PRN (14:14)
[2017-05-12] MEDS ORDERED: POTASSIUM PHOSPHATE 22 MEQ in SODIUM CHLORIDE 0.9% 500 ML IV ONE (16:00)
[2017-05-12] MEDS: ONDANSETRON 2MG/ML, 2ML IVPush PRN (20:48)
[2017-05-12] MEDS: ENOXAPARIN 40 MG/0.4 ML SQ SCH (20:52)
[2017-05-12] MEDS: LORazepam 1MG TABLET PO PRN (21:18)
[2017-05-13 01:14] VITALS: BP 120/81
[2017-05-13] MEDS: morphine SULFATE 10 MG/ML, 1ML IVPush PRN ×6 (01:22→21:40)
[2017-05-13 05:31] LABS: CHLORIDE 101 mmol/L (98-107)
[2017-05-13 05:41] LABS: ALANINE AMINOTRANSFERASE 110 U/L (12-78); ALBUMIN 2.7 g/dL (3.4-5.0); ALKALINE PHOSPHATASE 110 U/L (45-117); ANION GAP 10 mmol/L (5-15); BILIRUBIN,TOTAL 0.7 mg/dL (0.2-1.0); CREATININE 0.77 mg/dL (0.7-1.3); TOTAL PROTEIN 7.3 g/dL (6.4-8.2)
[2017-05-13 06:06] VITALS: BP 133/101
[2017-05-13] MEDS: DILTIAZEM 60 MG TABLET PO SCH ×4 (06:06→21:39)
[2017-05-13] MEDS: METOPROLOL TARTRATE 50 MG TABLET PO SCH ×2 (06:07→17:10)
[2017-05-13] MEDS: ONDANSETRON 2MG/ML, 2ML IVPush PRN ×2 (06:08→12:12)
[2017-05-13 07:42] VITALS: BP 146/97
[2017-05-13] MEDS: SODIUM CHLORIDE 0.9% 1,000 ML IV SCH ×2 (08:34→19:30)
[2017-05-13] MEDS: PANTOPRAZOLE 40 MG IV IVPush SCH ×2 (08:34→21:40)
[2017-05-13] MEDS: MAGNESIUM OXIDE 400 MG TABLET PO SCH ×2 (08:35→21:40)
[2017-05-13] MEDS: MULTIVITAMIN 1 TABLET PO SCH (08:35)
[2017-05-13] MEDS: THIAMINE 100MG TABLET PO SCH (08:36)
[2017-05-13] MEDS: LISINOPRIL 20 MG TABLET PO SCH ×2 (08:36→21:40)
[2017-05-13] MEDS: BACLOFEN 10 MG TABLET PO SCH ×3 (08:36→21:39)
[2017-05-13] MEDS: FOLIC ACID 1 MG TABLET PO SCH (08:36)
[2017-05-13] MEDS: POLYETHYLENE GLYCOL 17 GM PACKET PO SCH (08:43)
[2017-05-13] MEDS: CEFTRIAXONE 2 GM in SODIUM CHLORIDE 0.9% 50 ML IV SCH (09:16)
[2017-05-13 14:05] VITALS: BP 135/91
[2017-05-13 20:00] VITALS: BP 147/95
[2017-05-13 21:35] VITALS: BP 138/98
[2017-05-13] MEDS: ENOXAPARIN 40 MG/0.4 ML SQ SCH (21:39)
[2017-05-13] MEDS: LORazepam 1MG TABLET PO PRN (23:29)
[2017-05-14 02:00] VITALS: BP 135/95
[2017-05-14] MEDS: morphine SULFATE 10 MG/ML, 1ML IVPush PRN ×4 (03:40→20:32)
[2017-05-14] MEDS: SODIUM CHLORIDE 0.9% 1,000 ML IV SCH ×3 (03:40→20:32)
[2017-05-14 05:35] LABS: ALBUMIN 2.7 g/dL (3.4-5.0); ANION GAP 10 mmol/L (5-15); CALCIUM 8.5 mg/dL (8.5-10.1); CHLORIDE 103 mmol/L (98-107)
[2017-05-14 05:39] LABS: ALANINE AMINOTRANSFERASE 94 U/L (12-78); ALKALINE PHOSPHATASE 107 U/L (45-117); BILIRUBIN,TOTAL 0.6 mg/dL (0.2-1.0); CREATININE 0.69 mg/dL (0.7-1.3); TOTAL PROTEIN 7.3 g/dL (6.4-8.2)
[2017-05-14] MEDS: DILTIAZEM 60 MG TABLET PO SCH ×4 (06:17→20:30)
[2017-05-14] MEDS: METOPROLOL TARTRATE 50 MG TABLET PO SCH ×2 (06:17→16:56)
[2017-05-14 08:45] VITALS: BP 130/90
[2017-05-14] MEDS: MAGNESIUM OXIDE 400 MG TABLET PO SCH ×2 (08:56→20:30)
[2017-05-14] MEDS: THIAMINE 100MG TABLET PO SCH (08:56)
[2017-05-14] MEDS: BACLOFEN 10 MG TABLET PO SCH ×3 (08:56→20:30)
[2017-05-14] MEDS: MULTIVITAMIN 1 TABLET PO SCH (08:56)
[2017-05-14] MEDS: FOLIC ACID 1 MG TABLET PO SCH (08:56)
[2017-05-14] MEDS: LISINOPRIL 20 MG TABLET PO SCH ×2 (08:57→20:31)
[2017-05-14] MEDS: POLYETHYLENE GLYCOL 17 GM PACKET PO SCH (08:57)
[2017-05-14] MEDS: PANTOPRAZOLE 40 MG IV IVPush SCH ×2 (08:57→20:31)
[2017-05-14] MEDS: ONDANSETRON 2MG/ML, 2ML IVPush PRN ×2 (08:57→15:26)
[2017-05-14] MEDS: CEFTRIAXONE 2 GM in SODIUM CHLORIDE 0.9% 50 ML IV SCH (10:30)
[2017-05-14 15:19] VITALS: BP 135/91
[2017-05-14] MEDS ORDERED: POTASSIUM CHLORIDE 20 MEQ TAB.ER.PRT PO ONE (16:00)
[2017-05-14 20:00] VITALS: BP 125/86
[2017-05-14] MEDS: ENOXAPARIN 40 MG/0.4 ML SQ SCH (20:31)
[2017-05-15] MEDS: LORazepam 1MG TABLET PO PRN (00:45)
[2017-05-15] MEDS: morphine SULFATE 10 MG/ML, 1ML IVPush PRN ×2 (00:45→05:46)
[2017-05-15 00:48] VITALS: BP 129/93
[2017-05-15] MEDS: SODIUM CHLORIDE 0.9% 1,000 ML IV SCH (03:40)
[2017-05-15 05:30] VITALS: BP 134/95
[2017-05-15] MEDS ORDERED: MORPHINE SULFATE 4 MG/ML, 1ML ONE (05:38)
[2017-05-15] MEDS: DILTIAZEM 60 MG TABLET PO SCH (05:44)
[2017-05-15] MEDS: METOPROLOL TARTRATE 50 MG TABLET PO SCH (05:45)
[2017-05-15 06:14] LABS: ANION GAP 7 mmol/L (5-15); CALCIUM 9.1 mg/dL (8.5-10.1); CHLORIDE 108 mmol/L (98-107); CREATININE 0.72 mg/dL (0.7-1.3)
[2017-05-15 07:15] VITALS: BP 117/80
== END 2017-05-15 10:05 | disposition left against medical advice (07) | DRG 871 ==
LOC: ED 15:21 → EDIP 15:37 → 4WST 16:09
PROVIDERS: ADMIT Internal Medicine; ATTEND Internal Medicine
DX: A41.9 Sepsis, unspecified organism (principal); E43 Unspecified severe protein-calorie malnutrition; I11.9 Hypertensive heart disease without heart failure; F10.239 Alcohol dependence with withdrawal, unspecified; N39.0 Urinary tract infection, site not specified; K70.10 Alcoholic hepatitis without ascites; E78.5 Hyperlipidemia, unspecified; E83.39 Other disorders of phosphorus metabolism; E83.42 Hypomagnesemia; E87.6 Hypokalemia; F12.90 Cannabis use, unspecified, uncomplicated; G89.29 Other chronic pain; J44.9 Chronic obstructive pulmonary disease, unspecified; K29.70 Gastritis, unspecified, without bleeding; K59.00 Constipation, unspecified; Z83.3 Family history of diabetes mellitus; Z87.891 Personal history of nicotine dependence; Z90.2 Acquired absence of lung [part of]; F10.229 Alcohol dependence with intoxication, unspecified; Z68.23 Body mass index [BMI] 23.0-23.9, adult; Z53.21 Procedure and treatment not carried out due to patient leaving prior to being seen by health care provider
CPT/HCPCS: 36415; 71045; 74177; 80048; 80053; 80061; 80074; 80307; 81001; 82140; 83605; 83690; 83735; 83880; 84100; 84443; 84484; 85025; 85610; 85730; 87040; 87086; 93005; 96361; 96374; 96376; J0696; J1650; J2405; Q0162; Q9967; C9113; J0360; J2060; J2270; J3475; J7030; J7040

== ENCOUNTER 2017-12-26 12:00 | Emergency (ER) | payer MEDICAID ==
[~2017-12-26] VITALS: Ht 185.4 cm; Wt 91.3 kg
[~2017-12-26 12:00] MED LIST changes: +ALBU0.63 NEB; -AMLO10TA2 PO; +AMLO10TA6 PO; +MORP-52 PO; +[UNRECOGNIZED DRUG - CODE] PO
[2017-12-26 12:02] VITALS: BP 127/86
[2017-12-26] MEDS ORDERED: LIDOCAINE-MPF 2%, 2ML SQ ONE (12:30)
[2017-12-26] MEDS ORDERED: KETOROLAC 30 MG/1 ML IM ONE (12:30)
[2017-12-26] MEDS ORDERED: KETOROLAC 30 MG/1 ML ONE (12:52)
== END 2017-12-26 13:49 | disposition home or self-care (01) ==
LOC: ED 13:09
DX: S01.511A Laceration without foreign body of lip, initial encounter (principal); S01.81XA Laceration without foreign body of other part of head, initial encounter; E11.9 Type 2 diabetes mellitus without complications; Z87.09 Personal history of other diseases of the respiratory system; X58.XXXA Exposure to other specified factors, initial encounter; Y93.67 Activity, basketball; Y92.89 Other specified places as the place of occurrence of the external cause; Y99.8 Other external cause status
CPT/HCPCS: 12011; 40650; 96372; 99284; J1885; J3490; 99283

== ENCOUNTER 2019-04-06 22:42 | Emergency (ER) | payer MEDICAID ==
[~2019-04-06] VITALS: Ht 188 cm; Wt 98.6 kg
[~2019-04-06 22:42] MED LIST changes: -AMLO10TA6 PO; +AMLO10TA8 PO; -CLON0.1T PO; +CLON0.1T22 PO
--- NOTE | 2019-04-06 23:11 | NUR ---
Pt arrives to ed from [facility] [place] after having syncopal episode. Pt reports he was playing and blackout and fell backwards. Pt reports drinking 5 pints of "annita". Pt reprots chest pain a 10/10 and radiation to back. Pt reports he is short of breath, but his left lung is also missing. Pt reports no other complaitns. Pt also has gross etoh smell.
[2019-04-06 23:12] LABS: BASOPHILS # (AUTO) 0.11 x10^3/uL (0-0.1); BASOPHILS % (AUTO) 2 % (0-1); EOSINOPHILS # (AUTO) 0.06 x10^3/uL (0-0.4); EOSINOPHILS % (AUTO) 1 % (1-7); LYMPHOCYTES # (AUTO) 3.28 x10^3/uL (1-3.4); LYMPHOCYTES % (AUTO) 54 % (22-44); MD NO; MEAN CORPUSCULAR HEMOGLOBIN 31.1 pg (27.5-34.5); MEAN CORPUSCULAR HGB CONC 33.5 g/dL (33.2-36.2); MEAN CORPUSCULAR VOLUME 92.7 fL (81-97); MEAN PLATELET VOLUME 7.1 fL (7.4-10.4); MONOCYTES # (AUTO) 0.29 x10^3/uL (0.2-0.8); MONOCYTES % (AUTO) 5 % (2-9); NEUTROPHILS # (AUTO) 2.36 x10^3/uL (1.8-6.8); NEUTROPHILS % (AUTO) 39 % (42-75); PLATELET COUNT 255 x10^3/uL (130-400); RED BLOOD COUNT 4.88 x10^6/uL (4.38-5.82); RED CELL DISTRIBUTION WIDTH 16.1 % (9.4-14.8)
[2019-04-06 23:24] LABS: ALBUMIN 4.3 g/dL (3.4-5.0); ANION GAP 8 mmol/L (5-15); CALCIUM 8.4 mg/dL (8.5-10.1); CHLORIDE 109 mmol/L (98-107); CREATININE 0.87 mg/dL (0.7-1.3)
[2019-04-06 23:28] LABS: TROPONIN I < 0.015 ng/mL (0.000-0.045)
--- NOTE | 2019-04-06 23:47 | NUR ---
Pt resting in bed nadn.
--- NOTE | 2019-04-06 23:50 | NUR ---
RECEIVED BS REPORT FROM ANGELLA GIBBS. PT. RESTING ON GURNEY WITH BLANKET OVER FACE. EVEN, NON-LABORED RESPIRATIONS VISIBLE. ALL MONITORS IN PLACE. NO DISTRESS NOTED.
--- NOTE | 2019-04-07 00:22 | NUR ---
PT. RESTING ON GURNEY WITH BLANKET OVER HEAD. ALL MONITORS REMAIN IN PLACE. PT. TO D/C WHEN ABLE TO AMBULATE WITH STEADY GAIT. EVEN, NON-LABORED RESPIRATIONS VISIBLE. NO DISTRESS NOTED.
--- NOTE | 2019-04-07 01:16 | NUR ---
NO CHANGE SINCE LAST NOTE. VS UPDATED.
[2019-04-07 02:29] VITALS: BP 119/78
--- NOTE | 2019-04-07 02:29 | NUR ---
PT. WOKE UP AND WAS ABLE TO AMBULATE DOWN THE [facility] WITH STEADY GAIT. PT. WAS PROVIDED WITH CAB V[employer]ER TO HIS HOME ADDRESS HE PROVIDED. PT. AMBULATED TO D/C DESK; CAB CALLED FOR PT.
== END 2019-04-07 06:52 | disposition home or self-care (01) ==
LOC: ED 04-07 06:41
DX: R07.2 Precordial pain (principal); F10.220 Alcohol dependence with intoxication, uncomplicated; I10 Essential (primary) hypertension; E11.9 Type 2 diabetes mellitus without complications; J44.9 Chronic obstructive pulmonary disease, unspecified; E78.5 Hyperlipidemia, unspecified; F17.200 Nicotine dependence, unspecified, uncomplicated; Z90.2 Acquired absence of lung [part of]; Y90.9 Presence of alcohol in blood, level not specified
CPT/HCPCS: 36415; 71045; 80048; 80307; 82040; 84484; 85025; 93005; 99284